=== PATIENT | male | born 1975 | race Asian ===

== ENCOUNTER 2020-02-18 16:59 | Outpatient (REF) | payer OTHER, SELFPAY | END 2020-02-18 17:00 | disposition home or self-care (01) | LOC: HO.LNP 16:59 | PROVIDERS: Visit Provider Hospitalist | DX: R30.0 Dysuria (principal) | CPT/HCPCS: 87086 ==

== ENCOUNTER → 2020-04-20 13:07 | Outpatient (BNVA) | payer OTHER, SELFPAY | PROVIDERS: PCP Hospitalist; Visit Provider Urology | DX: R39.15 Urgency of urination (principal); R81 Glycosuria | CPT/HCPCS: 81002; 99202 ==